=== PATIENT | male | born 1975 | race African-American/Black ===

== ENCOUNTER 2019-11-22 11:52 | Emergency (ER) | payer SELFPAY ==
[~2019-11-22] VITALS: Ht 177.8 cm; Wt 68.0 kg
[2019-11-22 11:55] VITALS: BP 124/79
[2019-11-22] MEDS ORDERED: IBUPROFEN 600MG TABLET PO ONE (13:30)
== END 2019-11-22 14:02 | disposition left against medical advice (07) ==
LOC: ER 12:05
DX: M54.5 Low back pain (principal); V98.8XXA Other specified transport accidents, initial encounter; Y93.89 Activity, other specified; Y92.89 Other specified places as the place of occurrence of the external cause; Y99.8 Other external cause status
CPT/HCPCS: 99283